=== PATIENT | female | born 1955 | race Caucasian/White ===

== ENCOUNTER 2020-01-03 14:00 | Emergency (ER) | payer OTHER, SELFPAY ==
[2020-01-03] MEDS ORDERED: Fluorescein Opthalmic Strip ONE (14:12)
[2020-01-03] MEDS ORDERED: Proparacaine 0.5% Opth 15 ML BOT ONE (14:12)
== END 2020-01-03 14:59 | disposition home or self-care (01) ==
LOC: ERS 14:00
DX: H54.61 Unqualified visual loss, right eye, normal vision left eye (principal); I10 Essential (primary) hypertension; F17.210 Nicotine dependence, cigarettes, uncomplicated; Z79.82 Long term (current) use of aspirin
CPT/HCPCS: 99284

== ENCOUNTER 2020-03-08 13:17 | Outpatient (CLI) | payer OTHER ==
--- NOTE | 2020-03-08 14:47 | ULT ---
BILATERAL CAROTID DUPLEX ULTRASOUND: HISTORY: Right central retinal artery occlusion. TECHNIQUE: Grayscale, color-flow and spectral Doppler ultrasound imaging of the extracranial carotid artery syst ems was performed bilaterally. FINDINGS: Mild calcified atherosclerotic plaque is seen in the region of the right carotid bulb and proximal ri ght internal carotid artery with minimal vascular calcifications in the region of the left carotid bulb. There is no hemodynamically significant stenosis in the bilateral internal carotid arteries according to the peak systolic velocities and the ICA/CCA ratios. The peak systolic velocity in the right ICA measures 93.8 cm/s. The peak systolic velocity in the left ICA measures 97.9 cm/s. The right IC A/CCA ratio is 1.1, and the left ICA/CCA ratio is 1.2. Vertebral arteries: Antegrade flow is demonstrated in the vertebral arteries bilaterally. IMPRESSION: No hemodynamically significant stenosis in the bilateral internal carotid arteries.
== END 2020-03-08 13:18 | disposition home or self-care (01) ==
LOC: BICULT 13:17
PROVIDERS: ATTEND Family Medicine
DX: H34.11 Central retinal artery occlusion, right eye (principal)
CPT/HCPCS: 93880

== ENCOUNTER 2022-02-11 10:54 | Observation (INO) | payer MEDICARE ==
[2022-02-11 13:54] VITALS: BMI 28.2
[2022-02-11] MEDS ORDERED: Nitroglycerin 0.4 MG TAB (25 Tab Bottle) SL PRN (15:15)
[2022-02-11] MEDS ORDERED: Acetaminophen 325 MG TAB PO PRN (15:15)
[2022-02-11] MEDS ORDERED: Enoxaparin Sodium 40 MG/0.4 ML SYRINGE SC SCH (15:15)
[2022-02-11] MEDS ORDERED: Bisacodyl 5 MG TAB PO PRN (15:15)
[2022-02-11] MEDS ORDERED: Artificial Tear Sol 15 ML BOT EA EYE PRN (15:15)
[2022-02-11] MEDS ORDERED: Labetalol HCl 100 MG/20 ML VIAL SLOW IVP PRN (15:15)
[2022-02-11] MEDS ORDERED: Ondansetron ODT 4 MG TAB PO PRN (15:15)
[2022-02-11] MEDS ORDERED: Senokot S 8.6-50 MG TAB PO PRN (15:15)
[2022-02-11] MEDS ORDERED: hydrALAZINE 20 MG/ML VIAL SLOW IVP PRN (15:15)
[2022-02-11] MEDS ORDERED: Moisturizing Cream (Eucerin) 113 GM JAR TOP PRN (15:15)
[2022-02-11] MEDS ORDERED: Ondansetron PF 4 MG/2 ML Vial IVP PRN (15:15)
[2022-02-11] MEDS ORDERED: Acetaminophen 650 MG Suppository PR PRN (15:15)
[2022-02-11] MEDS ORDERED: Lisinopril 10 MG TAB PO SCH (15:30)
[2022-02-11 16:15] LABS: Troponin I 0.083 ng/mL (< 0.028)
[2022-02-11] MEDS ORDERED: Communication Order-Pharmacy FS SCH (16:45)
[2022-02-11] MEDS: Nicotine 14 MG PATCH TD SCH (18:18)
[2022-02-11 19:01] LABS: Troponin I 0.083 ng/mL (< 0.028)
[2022-02-11] MEDS: Enoxaparin Sodium 80 MG/0.8 ML SYRINGE SC SCH (19:09)
[2022-02-12] MEDS ORDERED: Sodium Chloride 0.9% 500 ML IV SCH (00:01)
[2022-02-12 05:24] LABS: #Basophils 0.1 thou/uL (0.0-0.2); #Eosinphils 0.3 thou/uL (0.0-0.7); #Lymphocytes 3.3 thou/uL (1.20-3.40); #Monocytes 0.6 thou/uL (0.11-0.59); #Neutrophils 4.7 thou/uL (1.40-6.50); %Basophils 1.1 % (0.0-1.0); %Lymphocytes 36.6 % (21.0-51.0); %Neutrophils 52.4 % (42.0-75.0); Hemoglobin 15.1 g/dL (12.0-16.0); Mean Corpuscular Hemoglobin 32.1 pg (27.0-31.0); Mean Corpuscular Volume 97.2 fL (78.0-98.0); Mean Platelet Volume 8.4 fL (7.4-10.4); Platelet Count 227 thou/uL (130-400); RBC Distribution Width 12.3 % (11.5-14.5); Red Blood Cell (RBC) Count 4.71 mill/uL (4.20-5.40); White Blood Cell (WBC) Count 8.9 thou/uL (4.8-10.8)
[2022-02-12] MEDS: Enoxaparin Sodium 80 MG/0.8 ML SYRINGE SC SCH (05:32)
[2022-02-12 05:47] LABS: ALT (SGPT) 7 U/L (8-55); AST (SGOT) 11 U/L (5-34); Albumin 3.6 g/dL (3.4-4.8); Alkaline Phosphatase 93 U/L (40-110); Anion Gap 13 mmol/L (10-20); BUN (Urea Nitrogen) 6 mg/dL (9.8-20.1); Bilirubin, Total 0.5 mg/dL (0.2-1.2); Calc. Creatinine Clearance 110 mL/min (70-130); Calcium 8.5 mg/dL (7.8-10.44); Carbon Dioxide 24 mmol/L (23-31); Cardiac Risk 8.1 (Less than 4.5); Chloride 108 mmol/L (98-107); Cholesterol 275 mg/dl (< 200 Desired); Globulin 2.6 g/dL (2.4-3.5); Glucose 95 mg/dL (80-115); HDL Cholesterol 34 mg/dL (>60 Neg Risk); LDL Cholesterol, Calculated 204 mg/dL; Potassium 3.3 mmol/L (3.5-5.1); Protein, Total 6.2 g/dL (5.8-8.1); Sodium 142 mmol/L (136-145); Triglycerides 186 mg/dL (Less than 150)
[2022-02-12] MEDS: Aspirin Chewable 81 MG TAB PO SCH (05:56)
[2022-02-12] MEDS ORDERED: Sodium Chloride 0.9% 1,000 ML IV SCH (07:15)
[2022-02-12] MEDS ORDERED: Communication Order-Pharmacy FS SCH (07:15)
[2022-02-12] MEDS ORDERED: Midazolam HCl 2 mg/2 ml Vial ONE (07:23)
[2022-02-12] MEDS ORDERED: Fentanyl 100 MCG/2 ML VIAL ONE (07:24)
[2022-02-12] MEDS ORDERED: Nitroglycerin 100MG/250ML BOT 0 ML ONE (08:01)
[2022-02-12] MEDS ORDERED: hydrALAZINE 20 MG/ML VIAL ONE (08:24)
[2022-02-12] MEDS ORDERED: Metoprolol Tartrate 5 MG/5 ML VIAL ONE (08:37)
[2022-02-12] MEDS ORDERED: Nitroglycerin 4.9 GM Bottle ONE (08:40)
[2022-02-12] MEDS ORDERED: Nitroglycerin 2% Ointment 1 INCH/1 GM Packet ONE (08:56)
[2022-02-12] MEDS ORDERED: Acetaminophen/Codeine 30-300mg Tablet PO PRN ×2 (08:57)
[2022-02-12] MEDS ORDERED: Sodium Chloride 0.9% 200 ML IV PRN (08:57)
[2022-02-12] MEDS ORDERED: Nitroglycerin 0.4 MG TAB (25 Tab Bottle) SL PRN (08:57)
[2022-02-12] MEDS ORDERED: Lisinopril 10 MG TAB PO SCH ×2 (09:00→13:00)
[2022-02-12] MEDS ORDERED: Enoxaparin Sodium 40 MG/0.4 ML SYRINGE SC SCH (09:00)
[2022-02-12] MEDS ORDERED: Amlodipine 5 MG TAB PO SCH (09:00)
[2022-02-12] MEDS ORDERED: Iopamidol 370 76% 100 ML VIAL ONE (12:38)
[2022-02-12] MEDS: Nicotine 14 MG PATCH TD SCH (17:11)
[2022-02-12] MEDS: Lisinopril 10 MG TAB PO SCH (20:27)
[2022-02-12] MEDS ORDERED: Electrolyte Replacement Protocol 1 EACH FS SCH (20:45)
[2022-02-12] MEDS ORDERED: Potassium Chloride 20 MEQ TAB PO SCH (20:45)
[2022-02-12] MEDS ORDERED: Atorvastatin Calcium 20 MG TAB PO SCH (21:00)
[2022-02-12] MEDS ORDERED: Rosuvastatin 20 MG TAB PO SCH ×2 (21:00)
[2022-02-13 05:21] LABS: Anion Gap 12 mmol/L (10-20); BUN (Urea Nitrogen) 7 mg/dL (9.8-20.1); Calc. Creatinine Clearance 102 mL/min (70-130); Carbon Dioxide 25 mmol/L (23-31); Chloride 108 mmol/L (98-107); Glucose 103 mg/dL (80-115); Magnesium 2.2 mg/dL (1.6-2.6); Potassium 3.7 mmol/L (3.5-5.1); Sodium 141 mmol/L (136-145)
[2022-02-13] MEDS ORDERED: Amlodipine 5 MG TAB PO SCH (06:00)
[2022-02-13 07:15] VITALS: TEMP 97.8
[2022-02-13] MEDS: Lisinopril 10 MG TAB PO SCH (07:58)
[2022-02-13] MEDS: Aspirin Chewable 81 MG TAB PO SCH (07:58)
[2022-02-13] MEDS ORDERED: Ezetimibe 10 MG TAB PO SCH (09:00)
[2022-02-13] MEDS ORDERED: Clopidogrel Bisulfate 300 MG TAB PO SCH (09:15)
[2022-02-13 11:17] VITALS: BP 171/81
[2022-02-14] MEDS ORDERED: Clopidogrel Bisulfate 75 MG TAB PO SCH (09:00)
== END 2022-02-13 10:49 | disposition home or self-care (01) ==
LOC: 2SW 13:45
PROVIDERS: ADMIT Internal Medicine; ATTEND Internal Medicine
PROC: 4A023N7 Measurement of Cardiac Sampling and Pressure, Left Heart, Percutaneous Approach (ICD-10-PCS; principal; 2022-02-12)
PROC: B2111ZZ Fluoroscopy of Multiple Coronary Arteries using Low Osmolar Contrast (ICD-10-PCS; 2022-02-12)
PROC: B2181ZZ Fluoroscopy of Left Internal Mammary Bypass Graft using Low Osmolar Contrast (ICD-10-PCS; 2022-02-12)
PROC: B2131ZZ Fluoroscopy of Multiple Coronary Artery Bypass Grafts using Low Osmolar Contrast (ICD-10-PCS; 2022-02-12)
DX: I25.110 Atherosclerotic heart disease of native coronary artery with unstable angina pectoris (principal); I25.82 Chronic total occlusion of coronary artery; I10 Essential (primary) hypertension; E78.5 Hyperlipidemia, unspecified; F17.210 Nicotine dependence, cigarettes, uncomplicated; E87.6 Hypokalemia; I69.398 Other sequelae of cerebral infarction; H54.61 Unqualified visual loss, right eye, normal vision left eye; E89.0 Postprocedural hypothyroidism; E78.00 Pure hypercholesterolemia, unspecified; D75.1 Secondary polycythemia; Z79.82 Long term (current) use of aspirin; Z79.899 Other long term (current) drug therapy; Z88.6 Allergy status to analgesic agent; Z88.8 Allergy status to other drugs, medicaments and biological substances; Z95.1 Presence of aortocoronary bypass graft; Z20.822 Contact with and (suspected) exposure to COVID-19
CPT/HCPCS: 80048; 80061; 83735; 84484; 93306; 93459; 97139 ×2; U0003; U0005; 36415; 80053; 84443; 85025; 96372; 96374; 99152; 99153; G0378; J0360; J1650; J2250; J3010; J7030; Q9967